=== PATIENT | male | born 1970 | race Caucasian/White ===

== ENCOUNTER → 2020-04-07 | Outpatient (CLI) | payer BC ==
--- NOTE | 2020-04-07 13:59 | CT ---
EXAMINATION TYPE: CT pelvis wo con DATE OF EXAM: 04/07/2020 COMPARISON: None HISTORY: Bowel changes CT DLP: 411.5 mGycm Examination of the solid and hollow viscera is limited given the lack of contrast. Unenhanced CT of t he pelvis was performed. The lack of contrast limits evaluation. GI contrast is administered. FINDINGS: KIDNEYS: No evidence for renal mass. No nephrolithiasis. No hydronephrosis. BOWEL: Appendix has a normal appearance. No evidence of bowel obstruction. No inflammatory process. Lymph nodes: No evidence for adenopathy greater than 1 cm. Abdominal aorta: Atheromatous changes seen. No evidence for aneurysm. Genital organs: No significant abnormality. Other: No significant abnormality. IMPRESSION: NO DISTINCT ABNORMALITY IDENTIFIED TO ACCOUNT FOR THE PATIENT'S SYMPTOMS.
== END | disposition home or self-care (01) ==
LOC: RADCTMAIN 11:53
PROVIDERS: ATTEND Family Medicine
DX: R10.9 Unspecified abdominal pain (principal)
CPT/HCPCS: 72192

== ENCOUNTER → 2023-03-24 | Outpatient (CLI) | payer BC ==
--- NOTE | 2023-03-24 08:50 | MR ---
EXAMINATION TYPE: MR lumbar spine wo con DATE OF EXAM: 03/24/2023 7:42 AM COMPARISON: NONE HISTORY: Back pain, BLE radiculopathy. Multiplanar, MultiSpin echo imaging of the lumbar spine was performed. L1-L2: Normal disc appearance without desiccation. No herniation, protrusion or disc bulging. No ca nal stenosis is present. Foramina are patent bilaterally. L2-L3: Normal disc appearance without desiccation. No herniation, protrusion or disc bulging. No ca nal stenosis is present. Foramina are patent bilaterally. L3-L4: Mild decreased signal and loss of height compatible with degenerative disc disease. Posterior disc bulge with annular tear. Mild effacement ventral thecal sac. No evidence for central stenosis or foraminal encroachment. No evidence for lateral recess stenosis. L4-L5: Mild decreased signal and loss of height compatible with degenerative disc disease. Posterior disc bulge with annular tear. Mild effacement ventral thecal sac. No evidence for central stenosis or foraminal encroachment. No evidence for lateral recess stenosis. L5-S1: Normal disc appearance without desiccation. No herniation, protrusion or disc bulging. No ca nal stenosis is present. Foramina are patent bilaterally. Lumbar segments are intact. No paraspinal masses are identified. Conus medullaris has a normal appe arance. IMPRESSION: 1. Posterior disc bulge at L3-4 and L4-5 with annular tears. No evidence for central stenosis or late ral recess stenosis at this time.
== END | disposition home or self-care (01) ==
LOC: RADMRIMAIN 07:01
PROVIDERS: ATTEND Family Medicine
DX: M47.26 Other spondylosis with radiculopathy, lumbar region (principal); M51.16 Intervertebral disc disorders with radiculopathy, lumbar region
CPT/HCPCS: 72148

== ENCOUNTER → 2023-06-09 | Outpatient (CLI) | payer BC ==
[2023-06-09 07:57] VITALS: BP 121/80; PULSE 93; RESP 15; TEMP 98.1
--- NOTE | 2023-06-09 14:13 | P.PAINPG ---
PQRS Measure Charge Sheet Comment: HISTORY OF PRESENT ILLNESS: 53 yr old male as a referral from [facility] presents today w severe and chronic LBP secondary to DDD, spondylosis and facet arthropathy without myelopathy for evaluation. Pt states pain level is provoked at 8/10 in intensity, constant, localized in the lower lumbar spine, dull in character w shooting pain towards the BLEs. Pain is provoked by walking, bending, standing. Pain is alleviated by medications (Mobic, Flexeril, Medrol dose pack), repositioning and rest. Oswestry axial pain score at 13. PMH: OA, HTN, Hyperlipidemia, BPH PSH: DENIES SH: Rare EtoH use, 4 pack/ yr tobacco use, No illicit drug use. . Employed. FH: Fa- DM. Mo- CAD. Bro- CAD. All: See list Meds: See list REVIEW OF ORGAN SYSTEMS: CONSTITUTIONAL: No fevers or chills. No recent weight loss. NEUROLOGICAL: + numbness and tingling along the distal extremities. No seizure disorders or headaches. MUSCULOSKELETAL: + pain PSYCHIATRIC: Denies current depression or suicidal thoughts. Physical Examinations : Constitutional : Cooperative , not in acute distress . Neurologic : Cranial nerve II to XII intact. No focal neurological deficits. Psychiatric : alert & oriented x 3. Matching mood & appropriate affect. Judgment & insight intact. Musculoskeletal : Cervical Spine Motor strength in the deltoid and b iceps: Normal right side. Normal Left side Motor strength biceps and the wrist extensors: Normal right side . Normal left side Motor strength in the triceps muscle: Normal right side. Normal left side Deep tendon reflexes: Normal at the biceps. Normal at Brachioradialis. Normal at triceps Vertebral body tenderness to deep palpation over Cervical facet loading test: positive bilaterally Spurling test: positive bilaterally Neck distraction test: positive bilaterally Sheba sign: positive bilaterally Lumbar spine Motor strength lower extremities ,thigh and legs 5/5 Right side , 5/5 Left side Deep tendon reflexes : Normal Knee Jerk. Normal Ankle Jerk Vertebral body tenderness over L4 Treviño Test positive Lumbar facet Loading Test: positive Right / positive Left Range of motion of the lumbar spine Flexion 30 degrees, extension 10 degrees Straight Leg Raise test: Left/ Right positive at <45 degrees Ankita test: positive right / positive left. Severe tenderness over the Sacroiliac joint on the Right / Left sides Gaenslen test: positive bilaterally Seated flexion test: positive bilatera lly. Sacral spine : Severe tenderness over the Sacroiliac joint: right side / left side Range of motion: Flexion of the lumbar spine <60 degrees Range of motion: Extension of the lumbar spine <20 degrees Gaenslen's Test positive Eder's Test positive Ankita test: positive right side / left side Thigh Thrust Test Sacral Thrust Test Imaging: MRI without contrast of the lumbar spine from 03/24/23 reviewed Assessment/ Plan : Lumbar disc bulges Recommendation of ISIS L4-L5 x1. May need a series of injections for optimal pain relief. Risks, benefits of procedure discussed and patient verbalized understanding. Admits to aspirin or anti- coagulant use or medical history of diabetes. Protocol for discontinuation/ continuation of medications kitty procedure discussed. Minimal anesthesia provided, if clinically indicated, consisting of Versed and Fentanyl. All questions answered. I have spent greater than 30 minutes on patient care today. Dr Kearns was available by phone for the evaluation of this patient. The time was used to review the medical records including relevant urine studies and Prescription history (MAPs), review of the available imaging, evaluation and examination of the patient, coordination of care with the medical staff and if applicable referring physicians, as well as creation of the medical record Controlled Substance Measures - Controlled Substance Measures Is patient prescribed a controlled substance at discharge?: No
== END ==
LOC: PNWHC3 07:20
PROVIDERS: ATTEND Specialist
DX: M43.07 Spondylolysis, lumbosacral region (principal); M19.90 Unspecified osteoarthritis, unspecified site; I10 Essential (primary) hypertension; E78.5 Hyperlipidemia, unspecified; N40.0 Benign prostatic hyperplasia without lower urinary tract symptoms; M51.16 Intervertebral disc disorders with radiculopathy, lumbar region
CPT/HCPCS: 99211

== ENCOUNTER 2023-07-01 07:50 | Day surgery (SDC) | payer BC ==
[2023-06-30 12:35] VITALS: BMI 27.3
[2023-07-01] MEDS ORDERED: LACTATED RINGERS 1,000 ML IV SCH (08:06)
[2023-07-01 08:13] VITALS: TEMP 97.4
[2023-07-01 08:17] LABS: Glucose,Whole Blood 137 mg/dL (70-110)
[2023-07-01] MEDS ORDERED: methylPREDNISolone ACETATE 40 MG/ML 1 ML VIAL ONE (08:50)
[2023-07-01] MEDS ORDERED: IOPAMIDOL M200 10 ML VIAL ONE (08:50)
--- NOTE | 2023-07-01 08:56 | P.PCN ---
Date of Procedure: 07/01/23 Procedure(s) Performed: PREOPERATIVE DIAGNOSIS: 1- Lumbar Degenerative Disc Diseases 2-Lumbar spondylosis with Facet arthropathy without myelopathy. POSTOPERATIVE DIAGNOSIS: 1-lumbar degenerative disc disease. 2-lumbar spondylosis with facet arthropathy without myelopathy. PROCEDURE 1. Lumbar epidural steroid injection under fluoroscopic guidance at the L4-5 level. (Fluoroscopy imaging was available in radiology department) 2. Lumbar epidurogram. ANESTHESIA: Lidocaine 1% 3 and then only. EBL: Minimal PROCEDURE INDICATION: The patient with low back pain and radiculitis symptoms unresponsive to conservative treatment. Fluoroscopy was used to optimize visualization of the needle placement and to maximize safety. PROCEDURE DESCRIPTION / TECHNIQUE: The patient was seen and identified in the preoperative area. Risks, benefits, complications including but not limited to infections ,bleeding ,allergic reaction to the medications ,nerve damage and not complete pain releife , and alternatives were discussed with the patient. The patient agreed to proceed with the procedure and signed the consent, and vital signs were stable. Patient was taken to the OR and time out was completed. The patient was placed in the prone position on procedure table and a pillow was placed under the abdomen to reduce lumbar lordosis. The lumbosacral area was prepped and draped in the usual sterile fashion.ere closely monitored during the procedure. Vital signs was monitered during the entire procedure. Using anterior-posterior fluoroscopy, the L4-5 interlaminar space was identified and the skin over this site was marked and then infiltrated with 1% lidocaine subcutaneously. Subsequently, a 20-gauge Tuohy epidural needle was inserted and advanced toward the epidural space using the ``Loss of resistance technique and guided by AP and lateral fluoroscopy. The correct needle position in the epidural space was verified with the injection of 2 mL of the water soluble contrast dye Isovue 200 contrast and observing an excellent epidurogram with the epidural spread of the dye, after negative aspiration for blood and CSF and in the absence of paresthesias. Again after negative aspiration, a 6 ml mixture containing 40 mg of Depo-medrol ( Preservetive Free ), and 2 ml of preservative free Normal Saline, and 2 ml of preservative free lidocaine 1% solution was injected and a washout of epidurogram was seen. Needle was withdrawn intact, skin was cleansed, and bandages were applied. COMPLICATIONS: None DISPOSITION / PLANS: The patient was placed in a supine position and transferred to the recovery area in a stable condition for observation. There was no ev idence of lower extremity motor or sensory deficit after the procedure. Patient was discharged from the recovery room after meeting discharge criteria. Home discharge instructions were given to the patient by the staff. The patient was reexamined prior to discharge. The patient will schedule a follow up in the clinic in 2-4 weeks.
[2023-07-01 09:01] VITALS: RESP 16
[2023-07-01 09:16] VITALS: BP 112/77; PULSE 104
--- NOTE | 2023-07-01 16:03 | FL ---
EXAMINATION TYPE: FL guided pain mgmt statistic DATE OF EXAM: 07/01/2023 FLUOROSCOPY Fluoroscopy time of 1 seconds was used during lumbar vertebral steroid injection. 1 image/s document /s the procedure. 0.06153 mGycm2.
== END 2023-07-01 09:17 | disposition home or self-care (01) ==
LOC: ORPAIN 07:50
PROVIDERS: ATTEND Specialist
DX: M51.16 Intervertebral disc disorders with radiculopathy, lumbar region (principal); M47.26 Other spondylosis with radiculopathy, lumbar region; Z88.0 Allergy status to penicillin
CPT/HCPCS: 62323; J1030; Q9966

== ENCOUNTER → 2023-07-22 | Outpatient (CLI) | payer BC ==
--- NOTE | 2023-07-23 09:47 | CT ---
EXAMINATION TYPE: CT brain wo/w con DATE OF EXAM: 07/22/2023 COMPARISON: None HISTORY: dizziness, memory loss, weakness CT DLP: 2059.8 mGycm Automated exposure control for dose reduction was used. CONTRAST: CT scan of the head is performed without and with IV Contrast, patient injected with 100 mL of Isovue 300. FINDINGS: There is no abnormal enhancing mass or midline shift identified. The ventricles and sulci are within normal limits in size. The globes are intact and the visualized sinuses are clear. Tiny punctate ca lcification in the right basal ganglia. Partially empty sella turcica. Orientation of the clivus and C1 approaches upon the anterior margins or medullary junction. IMPRESSION: 1. No evidence of acute process. No enhancing mass or mass effect. Consider MRI follow-up.
== END | disposition home or self-care (01) ==
LOC: RADCTMAIN 18:04
PROVIDERS: ATTEND Family Medicine
DX: R42 Dizziness and giddiness (principal); R47.01 Aphasia; R53.1 Weakness
CPT/HCPCS: 70470; Q9967

== ENCOUNTER → 2023-08-12 | Day surgery (SDC) | payer BC ==
[~2023-08-12] MED LIST: IOPAMIDOL M200 10 ML VIAL ONE; LACTATED RINGERS 1,000 ML IV SCH; methylPREDNISolone ACETATE 40 MG/ML 1 ML VIAL ONE
[2023-08-12 07:46] LABS: Glucose,Whole Blood 115 mg/dL (70-110)
[2023-08-12 07:57] VITALS: TEMP 97.2
--- NOTE | 2023-08-12 08:07 | P.PCN ---
Date of Procedure: 08/12/23 Description of Procedure: PREOPERATIVE DIAGNOSIS: lumbar radiculopathy POSTOPERATIVE DIAGNOSIS: Lumbar radiculopathy PROCEDURE 1. Lumbar epidural steroid injection under fluoroscopic guidance at the left L3- L4 paramedian 2. Lumbar epidurogram. Imaging: Fluoroscopy was used, images where saved to the medical record ANESTHESIA: Local only EBL: Minimal PROCEDURE INDICATION: The patient with low back pain and radiculitis symptoms unresponsive to conservative treatment. Fluoroscopy was used to optimize visualization of the needle placement and to maximize safety. PROCEDURE DESCRIPTION / TECHNIQUE: The patient was seen and identified in the preoperative area. Risks, benefits, complications including but not limited to infections, bleeding, allergic reaction to medications, nerve damage and incomplete pain relief, as well as alternatives to the procedure were discussed with the patient. The patient agreed to proceed with the procedure and signed the consent. IV was started if indicated above, and vital signs were stable. Patient was taken to the OR and time out was completed. The patient was placed in the prone position on procedure table and a pillow was placed under the abdomen to reduce lumbar lordosis. The lumbosacral area was prepped and draped in the usual sterile fashion. Vitals were closely monitored during the procedure. Using anterior-posterior fluoroscopy, the L3-L4 interlaminar space was identified and the skin over this site was marked and then infiltrated with 1% lidocaine subcutaneously. Subsequently, a 20-gauge Tuohy epidural needle was inserted and advanced toward the epidural space using the Loss of resistance technique and guided by AP and lateral fluoroscopy. The correct needle position in the epidural space was verified with the injection of 1 mL of Omnipaque 180 contrast to observe an acceptable epidurogram, after negative aspiration for blood and CSF and in the absence of paresthesias. Again after negative aspiration, a 3 ml mixture containing 40mg of depomedrol and 2 ml of preservative free Normal Saline was injected and a washout of epidurogram was seen. Needle was withdrawn intact, skin was cleansed, and bandages were applied. COMPLICATIONS: None DISPOSITION / PLANS: The patient was placed in a supine position and transferred to the recovery area in a stable condition for observation. There was no evidence of lower extremity motor or sensory deficit after the procedure. Patient was discharged from the recovery room after meeting discharge criteria. Home discharge instructions were given to the patient by the staff. The patient was reexamined prior to discharge. The patient will follow up as directed.
[2023-08-12 08:17] VITALS: RESP 12
--- NOTE | 2023-08-12 08:51 | FL ---
Intraoperative/procedural fluoroscopic services were provided for lumbar epidural steroid injection. Total fluoroscopy time is 6.9 seconds with a total of 1 submitted image to PACS. Total DAP 0.69027 mG ym2. Please see the operative note for further details.
[2023-08-12 08:57] VITALS: BP 103/70; PULSE 89
== END ==
LOC: ORPAIN 07:25
PROVIDERS: ATTEND Hospitalist
DX: M54.16 Radiculopathy, lumbar region (principal); E11.9 Type 2 diabetes mellitus without complications; Z88.0 Allergy status to penicillin
CPT/HCPCS: 62323; J1030; Q9966

== ENCOUNTER → 2023-08-19 | Outpatient (CLI) | payer BC ==
--- NOTE | 2023-08-22 10:26 | MR ---
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 TECHNIQUE: Multi planar, multi sequence imaging was performed through the brain including: T1, T2, In version recovery, Diffusion weighted imaging, and gradient echo imaging. No gadolinium was given. FINDINGS: The martin-white junctions, ventricular system, and cisterns appear unremarkable. Midline structures sh ow no abnormality. Diffusion-weighted imaging shows no evidence of restricted diffusion. The suscepti bility weighted images do not reveal any evidence for micro-hemorrhage. The bone marrow signal is within normal limits. Paranasal sinuses and mastoid air cells: No significant paranasal sinus disease. Visualized orbits: Orbital contents are intact. IMPRESSION: No evidence of intracranial mass or acute/subacute infarct.
== END | disposition home or self-care (01) ==
LOC: RADMRIMAIN 17:30
PROVIDERS: ATTEND Family Medicine
DX: R47.01 Aphasia (principal); R53.1 Weakness
CPT/HCPCS: 70551

== ENCOUNTER → 2023-10-23 | Outpatient (CLI) | payer BC ==
--- NOTE | 2023-10-23 13:27 | P.PAINPG ---
PQRS Measure Charge Sheet Comment: HISTORY OF PRESENT ILLNESS: 53 yr old male presents today w severe and chronic LBP secondary to DDD, spondylosis and facet arthropathy without myelopathy for evaluation s/p L paramedian ISIS L3-L4 #2. Pt states he experienced 50% pain relief x 1.5 wks s/p procedure. Pt states pain level is provoked at 7/10 in intensity, constant, localized in the R lower lumbar spine, predominantly axial, dull in character w occasional shooting pain towards the back of the BLEs. Pain is provoked by walking, bending, standing. Pain is alleviated by PT integrated w massage x 6 wks in Mar 2023, medications, topical, alternating heat & ice, repositioning, reclining and rest. Oswestry axial pain score at 21. Interventional procedures include ISIS L4-L5 x1, L paramedian ISIS L3-L4 x1 Medications include Mobic, Flexeril REVIEW OF ORGAN SYSTEMS: CONSTITUTIONAL: No fevers or chills. No recent weight loss. NEUROLOGICAL: + numbness and tingling along the distal extremities. No seizure disorders or headaches. MUSCULOSKELETAL: + pain PSYCHIATRIC: Denies current depression or suicidal thoughts. Physical Examinations : Constitutional : Cooperative , not in acute distress . Neurologic : Cranial nerve II to XII intact. No focal neurological deficits. Psychiatric : alert & oriented x 3. Matching mood & appropriate affect. Judgment & insight intact. Musculoskeletal : Cervical Spine Motor strength in the deltoid and biceps: Normal right side. Normal Left side Motor strength biceps and the wrist extensors: Normal right side . Normal left side Motor strength in the triceps muscle: Normal right side. Normal left side Deep tendon reflexes: Normal at the biceps. Normal at Brachioradialis. Normal at triceps Vertebral body tenderness to deep palpation over Cervical facet loading test: positive bilaterally Spurling test: positive bilaterally Neck distraction test: positive bilaterally Sheba sign: positive bilaterally Lumbar spine Motor strength lower extremities ,thigh and legs 5/5 Right side , 5/5 Left side Deep tendon reflexes : Normal Knee Jerk. Normal Ankle Jerk Vertebral body tenderness over L3 Treviño Test positive over L3-L4 Lumbar facet Loading Test: positive Right / positive Left Range of motion of the lumbar spine Flexion 30 degrees, extension 10 degrees Straight Leg Raise test: Left/ Right positive at degrees Ankita test: positive right / positive left. Severe tenderness over the Sacroiliac joint on the Right / Left sides Gaenslen test: positive bilaterally Seated flexion test: positive bilaterally. Sacral spine : Severe tenderness over the Sacroiliac joint: right side / left side Range of motion: Flexion of the lumbar spine <60 degrees Range of motion: Extension of the lumbar spine <20 degrees Gaenslen's Test positive Eder's Test positive Ankita test: positive right side / left side Thigh Thrust Test Sacral Thrust Test Imaging: MRI without contrast of the lumbar spine from 03/24/23 reviewed Assessment/ Plan : Lumbar disc bulges Recommendation of follow up w Dr Garrison to explore additional treatment options. All questions answered. I have spent greater than 30 minutes on patient care today. Dr Kearns was available by phone for the evaluation of this patient. The time was used to review the medical records including relevant urine studies and Prescription history (MAPs), review of the available imaging, evaluation and examination of the patient, coordination of care with the medical staff and if applicable referring physicians, as well as creation of the medical record PQRS Narrative: Hx Alcohol Use (MH) Yes: rare use Home Medications: Ambulatory Orders Cetirizine HCl [Zyrtec] 10 mg PO DAILY 06/30/23 FLUoxetine HCL [PROzac] 40 mg PO DAILY 06/30/23 Fenofibrate Nanocrystallized [Fenofibrate] 145 mg PO DAILY 06/30/23 Simvastatin 40 mg PO DAILY 06/30/23 lisinopriL [Zestril] 20 mg PO DAILY 06/30/23 Meloxicam [Mobic] 7.5 mg PO DAILY PRN 08/11/23 Controlled Substance Measures - Controlled Substance Measures Is patient prescribed a controlled substance at discharge?: No
[2023-10-23 13:48] VITALS: BP 121/81; PULSE 110; RESP 16; TEMP 97.1
== END ==
LOC: PNWHC3 09:48
PROVIDERS: ATTEND Specialist
DX: M51.36 Other intervertebral disc degeneration, lumbar region (principal); Z88.0 Allergy status to penicillin
CPT/HCPCS: 99211

== ENCOUNTER → 2023-12-19 | Outpatient (CLI) | payer BC ==
--- NOTE | 2024-01-05 10:55 | P.CEMON ---
[14] DAY EVENT MONITOR REPORT: INDICATION: Arrhythmia. I49.9 START DATE: 12/19/2023 END DATE: 01/01/2024 Patient wore the monitor for 13 days which is 91% of total time. FINDINGS: Overall [good] quality study. Patient's baseline rhythm was [normal sinus rhythm]. Baseline heart rate was 96 bpm. There were no observed atrial fibrillation, atrial flutter or sustained ventricular rhythm. There were no observed sinus pauses which were more than 2 second long. Patient symptoms correlation: Patient reported rigors of dizziness, lightheadedness and unspecified symptoms corresponded to sinus tachycardia with average heart rate around 110 to 120 bpm and sinus rhythm. Conclusion Sinus tachycardia with no evidence of atrial fibrillation or any other atrial or ventricular arrhythmia. Patient triggered events of lightheadedness dizziness and unspecified symptoms corresponded to sinus rhythm and sinus tachycardia Yovanny Rojas MD, FACC, RPVI Thank you for allowing [facility] to participate in this patient's care. Feel free to reach out in case of any followup questions. Please CC a copy of this report to Dr. Sg Martini
== END | disposition home or self-care (01) ==
LOC: RADECHMAIN 09:21
PROVIDERS: ATTEND Family Medicine
DX: R00.0 Tachycardia, unspecified (principal)
CPT/HCPCS: 93270

== ENCOUNTER → 2024-03-02 | Outpatient (CLI) | payer BC ==
--- NOTE | 2024-03-03 13:31 | MR ---
EXAMINATION TYPE: MR lumbar spine wo con DATE OF EXAM: 03/02/2024 4:34 PM CLINICAL INDICATION:Male, 54 years old with history of M54.16 RADICULOPATHY, LUMBAR REGION, Low back pain into both legs x1 year COMPARISON: 03/24/2023 TECHNIQUE: Multi planar, multi sequence imaging was performed utilizing: T1-weighted, T2-weighted, a nd turbo inversion recovery imaging of the lumbar spine. IV Contrast: (None if empty) FINDINGS: Alignment: The lumbar vertebral bodies have preserved heights and alignment. Cord: The conus medullaris and the distal spinal cord appear unremarkable with regards to their signa l intensity and morphology. Bones/Discs: Mild degeneration changes throughout the spine with osteophyte formation and facet joint arthropathy. Intervertebral disc signal is maintained. T12-L1: No evidence of significant spinal canal stenosis or neural foraminal stenosis. L1-L2: No evidence of significant spinal canal stenosis or neural foraminal stenosis. L2-L3: Pos no significant disc pathology. The spinal canal and neural foramen are patent. L3-L4: Posterior annular tear without significant bulging or protrusion. Facet joint arthropathy with mild to moderate bilateral neural foraminal stenosis. L4-L5: Central disc protrusion with annular tear . No significant spinal canal stenosis. There is fac et joint arthropathy with moderate bilateral neural foraminal stenosis. L5-S1: No evidence of significant spinal canal stenosis. Facet joint arthropathy mild bilateral neura l foraminal stenosis. No significant spinal canal or neural foraminal stenosis in the remainder of the visualized levels. Other findings: None. IMPRESSION: L4-L5 central disc protrusion with annular tear with out significant spinal canal stenosis. There is moderate bilateral neural foraminal stenosis. This is similar prior on 03/24/2023
== END | disposition home or self-care (01) ==
LOC: RADMRIMAIN 15:32
PROVIDERS: ATTEND Orthopaedic Surgery
DX: M51.26 Other intervertebral disc displacement, lumbar region (principal); M51.36 Other intervertebral disc degeneration, lumbar region; M99.73 Connective tissue and disc stenosis of intervertebral foramina of lumbar region
CPT/HCPCS: 72148

== ENCOUNTER → 2024-06-01 | Outpatient (CLI) | payer BC | END | disposition home or self-care (01) | LOC: LABPRL 10:25 | PROVIDERS: ATTEND Family Medicine | DX: R79.89 Other specified abnormal findings of blood chemistry (principal) | CPT/HCPCS: 83036; 84450; 84460 ==